=== PATIENT | male | born 1940 | race Caucasian/White ===

== ENCOUNTER → 2019-08-25 | Outpatient (CLI) | payer MEDICARE ==
[~2019-08-25] MED LIST: Aspirin EC81 MG PO; LOSA25 PO; METO25ER PO; Metformin HCl500 MG PO; Omeprazole20 M1 PO; POTASSIUM GLUC500 MG PO; Prinivil10 MG PO; SIMV40 PO; VITAMIN D31000 UNIT PO; pletal PO
[2019-08-27 12:45] LABS: Stool Occult Bld Immuno 1 Negative (NEGATIVE)
== END | disposition home or self-care (01) ==
LOC: LAB SHORT 11:00 → OLS 11:00
PROVIDERS: Nurse Practitioner Family
DX: R71.8 Other abnormality of red blood cells (principal)
CPT/HCPCS: G0328

== ENCOUNTER → 2023-09-23 | Outpatient (CLI) | payer MEDICARE ==
[~2023-09-23] MED LIST changes: +TAMS.4ER PO
[2023-09-23 19:59] LABS: Microalbumin, Random Urine 43.5 mg/L (0.000-20.000)
== END ==
LOC: LAB SHORT 13:30 → LAB 13:30 → EDSTATUS 09-22 14:45 → LAB FUT 09-22 14:45
PROVIDERS: Nurse Practitioner Family
DX: E11.9 Type 2 diabetes mellitus without complications (principal)
CPT/HCPCS: 82043; 82570

== ENCOUNTER 2023-10-20 07:43 | Day surgery (SDC) | payer MEDICARE | END 2023-10-20 22:56 | disposition home or self-care (01) | LOC: CT 07:43 | DX: I25.10 Atherosclerotic heart disease of native coronary artery without angina pectoris (principal); I25.84 Coronary atherosclerosis due to calcified coronary lesion; Z95.1 Presence of aortocoronary bypass graft; I11.0 Hypertensive heart disease with heart failure; I50.30 Unspecified diastolic (congestive) heart failure; E78.5 Hyperlipidemia, unspecified; E11.9 Type 2 diabetes mellitus without complications; J44.9 Chronic obstructive pulmonary disease, unspecified; Z88.5 Allergy status to narcotic agent; Z79.02 Long term (current) use of antithrombotics/antiplatelets; Z79.899 Other long term (current) drug therapy | CPT/HCPCS: 75574; Q9967 ==